=== PATIENT | female | born 1970 | race Caucasian/White ===

== ENCOUNTER 2023-07-18 12:01 | Emergency (ER) | payer BC ==
[2023-07-18 12:39] LABS: Absolute Lymphocytes (CBC) 2.3 K/uL (0.7-4.9); Hematocrit 42.9 % (36.0-45.0); Lymphocytes % 18.7 % (15.3-44.8); MCV 91.3 fL (80-100); MPV 9.4 fL (7.6-11.3); Platelets 271 thou/uL (152-406)
[2023-07-18 12:45] LABS: Specific Gravity 1.011 (1.005-1.030); Urine Bacteria None Seen /HPF (<20); Urine Bilirubin NEGATIVE (Negative); Urine Blood Negative (Negative); Urine Clarity Turbid (Clear); Urine Color Colorless (Yellow); Urine Glucose NEGATIVE (Negative); Urine Protein NEGATIVE (Negative); Urine RBC <5 /HPF (None Seen); Urine Urobilinogen Normal (Normal)
[2023-07-18] MEDS ORDERED: MORPHINE 4 MG/ML SYR ONE (12:46)
[2023-07-18] MEDS ORDERED: NA CHLORIDE 0.9% 1,000 ML ONE ×2 (12:46→13:48)
[2023-07-18] MEDS ORDERED: ONDANSETRON 4 MG/2 ML VIAL ONE (12:46)
[2023-07-18 12:56] LABS: Albumin 3.6 g/dL (3.4-5.0); Bilirubin Total 0.2 mg/dL (0.2-1.0); Potassium 3.9 mEq/L (3.5-5.1); Protein, Total 7.8 g/dL (6.4-8.2)
[2023-07-18] MEDS ORDERED: FENTANYL CITR 100 MCG/2 ML ONE (13:46)
[2023-07-18] MEDS ORDERED: NA CHLORIDE 0.9% 0 ML ONE (13:46)
--- NOTE | 2023-07-18 14:05 | RAD REPORT ---
EXAM DESCRIPTION: CT - Abdomen Pelvis W Contrast - 07/18/2023 1:20 pm CLINICAL HISTORY: ABD PAIN COMPARISON: No comparisons TECHNIQUE: Thin cut axial CT imaging of the abdomen and pelvis was performed following intravenous a dministration of 100 mL Isovue 300. Multiplanar reformats were generated and reviewed. All CT scans are performed using dose optimization technique as appropriate and may include automated exposure control or mA/KV adjustment according to patient size. FINDINGS: No suspicious findings in the lung bases. The liver shows diffuse parenchymal hypoattenuation suggesting steatosis. Spleen, and pancreas show n o suspicious findings. Gallbladder shows minimal layering hyperdense material, could represent small stones. Left adrenal ovoid 1.8 centimeter hypoenhancing nodule, not well characterized. Symmetric renal function is seen with no hydronephrosis or suspicious renal mass. No dilated bowel loops or bowel wall thickening. Nonspecific segmental fluid filling within nondilate d left hemiabdomen small-bowel loops, could relate to diarrheal state. No free air, free fluid or inf lammatory stranding. No hernia, mass or bulky lymphadenopathy. The urinary bladder is without signifi cant finding. No suspicious bony findings. IMPRESSION: No acute intra-abdominal process. Nonspecific segmental fluid filling of nondilated le ft abdominal small bowel loops, could relate to diarrheal state. Incidentally noted left adrenal 1.8 cm hypoenhancing nodule, not well characterized on this single-ph ase exam, could represent an adenoma. Possibility of metastatic disease cannot be entirely excluded. Further characterization by adrenal protocol CT, or MRI (including an out of phase imaging), may be h elpful.
--- NOTE | 2023-07-18 15:14 | RAD REPORT ---
EXAM DESCRIPTION: US - Abdomen Exam Limited - 07/18/2023 3:01 pm CLINICAL HISTORY: ABD PAIN COMPARISON: Abdomen Pelvis W Contrast dated 07/18/2023 TECHNIQUE: Sonographic grayscale and color flow images of the right upper abdominal quadrant were obtained. FINDINGS: The gallbladder demonstrates few tiny layering gallstones along the dependent wall of the gallbladder body with posterior acoustic shadowing. No pericholecystic fluid or gallbladder wall thic kening. The common bile duct is prominent measuring 8 millimeters in caliber. The liver demonstrates no findings of intrahepatic biliary dilatation. Visualized liver parenchyma an d shows diffuse hyperechogenicity suggesting steatosis. IMPRESSION: Few gallstones. No sonographic findings to suggest acute cholecystitis. Nonspecific common bile duct prominence, without evidence of choledocholithiasis. Please correlate wi th bili levels.
[2023-07-18] MEDS ORDERED: DICYCLOMINE HCL 10 MG CAP ONE (15:17)
--- NOTE | 2023-07-18 15:33 | ER ---
Nurse's Notes [facility] Name: Nuria Maya Age: 53 yrs Sex: Female : 1970 Arrival Date: 07/18/2023 Time: 12:01 Bed 20 Private MD: Diagnosis: Abdominal pain, Generalized;Other cholelithiasis without obstruction Presentation: 07/18 12:07 Chief complaint: Patient states: Upper abdominal pain along with distention since 8am nj1 this morning. Denies N/V/D as well as fever. Currently undergoing radiation for breast cancer. 12:07 Coronavirus screen: Vaccine status: Patient reports being unvaccinated. Ebola Screen: [facility] Patient denies travel to an Ebola-affected area in the 21 days before illness onset. Initial Sepsis Screen: Does the patient meet any 2 criteria? HR > 90 bpm. No. Patient's initial sepsis screen is negative. Does the patient have a suspected source of infection? No. Patient's initial sepsis screen is negative. Risk Assessment: Do you want to hurt yourself or someone else? Patient reports no desire to harm self or others. Onset of symptoms was July 18, 2023 at 08:15. 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 - Social history:: Smoking status: Patient denies any tobacco usage or history of. Screenin:07 [facility] [place] ED Fall Risk Assessment (Adult) History of falling in the last 3 months, db including since admission No falls in past 3 months (0 pts) Score/Fall Risk Level 0 - 2 = Low Risk Oriented to surroundings, Maintained a safe environment. Abuse screen: Denies threats or abuse. Denies injuries from another. Nutritional screening: No deficits noted. Tuberculosis screening: No symptoms or risk factors identified. Assessment: 12:30 Reassessment: Patient appears in no apparent distress at this time. Patient and/or db family updated on plan of care and expected duration. Pain level reassessed. Patient is alert, oriented x 3, equal unlabored respirations, skin warm/dry/pink. General: Appears in no apparent distress. comfortable, Behavior is calm, cooperative. Pain: Complains of pain in abdomen. Neuro: Level of Consciousness is awake, alert, obeys commands, Oriented to person, place, time, situation. Respiratory: Airway is patent Respiratory effort is even, unlabored, Respiratory pattern is regular, symmetrical. GI: Bowel sounds Abd is soft Abdomen is tender to palpation. 13:58 Reassessment: NOTIFIED CHARGE UNABLE TO OBTAIN IV. AND PREVIOUS LINE INFILTRATED. db ANOTHER NURSE AT BEDSIDE FOR ULTRASOUND IV PLACEMENT. 15:15 Reassessment: Patient appears in no apparent distress at this time. Patient and/or db family updated on plan of care and expected duration. Pain level reassessed. 16:00 Reassessment: Patient appears in no apparent distress at this time. Patient and/or db family updated on plan of care and expected duration. Pain level reassessed. Patient is alert, oriented x 3, equal unlabored respirations, skin warm/dry/pink. Patient states feeling better. Patient states symptoms have improved. Vital Signs: 12:07 BP 115 / 89; Pulse 96; Resp 20; Temp 97.9(O); Pulse Ox 97% on R/A; Weight 92.99 kg; nj1 Height 5 ft. 3 in. ; Pain 9/10; 13:32 BP 132 / 78; Pulse 93; Resp 16; Pulse Ox 96% on R/A; db 14:30 BP 129 / 80; Pulse 88; Resp 16; Pulse Ox 98% on R/A; db 15:30 BP 115 / 76; Pulse 87; Resp 16; Pulse Ox 97% on R/A; db 12:07 Body Mass Index 36.31 (92.99 kg, 160.02 cm) nj1 12:07 Pain Scale: Adult nj1 ED Course: 12:04 Patient arrived in ED. ts1 12:06 Verónica Funez FNP-C [facility]. kb 12:[address] MD is Attending Physician. kb 12:09 Sandi Walsh, LAYLA is Primary Nurse. db 12:16 Triage completed. nj1 12:18 Arm band placed on left wrist. nj1 12:28 Inserted saline lock: 22 gauge in left antecubital area, using aseptic technique. Blood db collected. 13:22 CT Abd/Pelvis - IV Contrast Only In Process Unspecified. EDMS 13:40 IV discontinued, intact, IV LINE NO LONGER WORKING. NOTED INFILTRATION AFTER PATIENT db RETURNED FROM CT. 13:55 Missed attempt(s): 22 gauge in left forearm. Bleeding controlled, band aid applied, db catheter tip intact. 14:10 Inserted saline lock: 20 gauge in left upper arm, using aseptic technique. ,using nj1 aseptic technique. Ultrasound guided. Catheter tip well visualized within vasculature during placement. 15:03 US Abdomen Limited In Process Unspecified. EDMS 16:20 Patient has correct armband on for positive identification. Bed in low position. Call db light in reach. Side rails up X 1. Provided Education on: discharge. 16:20 No provider procedures requiring assistance completed. db Administered Medications: 12:32 Drug: NS 0.9% IV 1000 ml Route: IV; Rate: 1 bolus; Site: left antecubital; db 16:20 Follow up: IV Status: Completed infusion; IV Intake: 1000ml db 12:32 Drug: Ondansetron IVP 4 mg Route: IVP; Site: left antecubital; db 16:20 Follow up: Response: No adverse reaction db 12:33 Drug: morphine IVP or IV 4 mg Route: IVP; Infused Over: 4 mins; Site: left antecubital; db 16:20 Follow up: Response: No adverse reaction db 14:15 Drug: fentaNYL (PF) IVP 50 mcg Route: IVP; Site: left antecubital; db 16:20 Follow up: Response: No adverse reaction db 15:10 Drug: Dicyclomine PO 20 mg Route: PO; db 16:20 Follow up: Response: No adverse reaction db Medication: 16:20 VIS not applicable for this client. db Intake: 16:20 IV: 1000ml; Total: 1000ml. db Outcome: 15:32 Discharge ordered by . kb 16:20 Discharged to home ambulatory, with friend. db 16:20 Condition: stable 16:20 Discharge instructions given to patient, Instructed on discharge instructions, follow up and referral plans. Prescriptions given X 3. 16:26 Patient left the ED. hb Signatures: Dispatcher [employer] EDMS Verónica Funez, CURING PRESS OPERATOR-C CURING PRESS OPERATOR-Ckb Sandi Silva, RN RN hb Sandi Walsh, RN RN db Kathie Shafer RN RN nj1 Yazmin Wilson PAS [facility] ts1 Corrections: (The following items were deleted from the chart) 14:05 13:40 IV discontinued, intact, IV LINE NO LONGER WORKING. NOTED INFILTRATION db db
--- NOTE | 2023-07-18 15:33 | EDPHYS ---
Physician Documentation [facility] Name: Nuria Maya Age: 53 yrs Sex: Female : 1970 Arrival Date: 07/18/2023 Time: 12:01 Bed 20 Private MD: ED Physician Girma Lane HPI: 07/18 15:13 This 53 yrs old Female presents to ER via Ambulatory with complaints of Abdominal Pain, kb Back Pain, Neck Pain, <24hrs Old. 15:13 The patient presents with abdominal pain that is diffuse. Pt reports abd pain, bloating kb and nausea that started this morning. States she came here on June 29 for same symptoms and was admitted, but they only checked her heart. States she wants her abd checked out this time. States she gets similar pain and symptoms every 2-3 weeks, but she normally doesn't feel the need to come to the ER for it. . 15:29 Onset: The symptoms/episode began/occurred this morning. The symptoms do not radiate. kb Associated signs and symptoms: Pertinent positives: nausea, Pertinent negatives: fever. The symptoms are described as constant. Modifying factors: The symptoms are alleviated by nothing, the symptoms are aggravated by nothing. Severity of pain: At its worst the pain was mild moderate in the emergency department the pain is unchanged. The patient has experienced similar episodes in the past. The patient has not recently seen a physician. 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 - Social history:: Smoking status: Patient denies any tobacco usage or history of. ROS: 15:13 Constitutional: Negative for fever, chills, and weight loss. kb 15:13 Abdomen/GI: Positive for abdominal pain, nausea. 15:13 All other systems are negative. Exam: 15:13 Constitutional: This is a well developed, well nourished patient who is awake, alert, kb and in no acute distress. Head/Face: Normocephalic, atraumatic. ENT: Moist Mucous membranes Cardiovascular: Regular rate and rhythm with a normal S1 and S2. No gallops, murmurs, or rubs. No pulse deficits. Respiratory: Respirations even and unlabored. No increased work of breathing. Talking in full sentences Skin: Warm, dry with normal turgor. Normal color. MS/ Extremity: Pulses equal, no cyanosis. Neurovascular intact. Full, normal range of motion. Neuro: Awake and alert, GCS 15, oriented to person, place, time, and situation. Moves all extremities. Normal gait. 15:13 Abdomen/GI: Inspection: abdomen appears normal, Bowel sounds: normal, Palpation: soft, in all quadrants, mild abdominal tenderness, in all quadrants. Vital Signs: 12:07 BP 115 / 89; Pulse 96; Resp 20; Temp 97.9(O); Pulse Ox 97% on R/A; Weight 92.99 kg; nj1 Height 5 ft. 3 in. ; Pain 9/10; 13:32 BP 132 / 78; Pulse 93; Resp 16; Pulse Ox 96% on R/A; db 14:30 BP 129 / 80; Pulse 88; Resp 16; Pulse Ox 98% on R/A; db 15:30 BP 115 / 76; Pulse 87; Resp 16; Pulse Ox 97% on R/A; db 12:07 Body Mass Index 36.31 (92.99 kg, 160.02 cm) nj 12:07 Pain Scale: Adult nj1 MDM: 12:06 Patient medically screened. kb 15:16 Differential diagnosis: bowel obstruction, cholecystitis, Cholelithiasis, gastritis, kb non-specific abd pain, pancreatitis. Data reviewed: vital signs, nurses notes. 15:31 Counseling: I had a detailed discussion with the patient and/or guardian regarding the kb historical points, exam findings, and any diagnostic results supporting the discharge/admit diagnosis, lab results, radiology results, the need for outpatient follow up, a family practitioner, a general surgeon, a test desk trouble locator, to return to the emergency department if symptoms worsen or persist or if there are any questions or concerns that arise at home. 07/18 12:16 Order name: CBC with Diff; Complete Time: 12:47 kb 07/18 12:16 Order name: CMP; Complete Time: 13:08 kb 07/18 12:16 Order name: Lipase; Complete Time: 13:08 kb 07/18 12:16 Order name: Urinalysis w/ reflexes; Complete Time: 12:47 kb 07/18 12:16 Order name: CT Abd/Pelvis - IV Contrast Only; Complete Time: 14:08 kb 07/18 14:35 Order name: US Abdomen Limited; Complete Time: 15:16 kb 07/18 12:16 Order name: IV Saline Lock; Complete Time: 12:30 kb 07/18 12:16 Order name: Labs collected and sent; Complete Time: 12:30 kb Administered Medications: 12:32 Drug: NS 0.9% IV 1000 ml Route: IV; Rate: 1 bolus; Site: left antecubital; db 16:20 Follow up: IV Status: Completed infusion; IV Intake: 1000ml db 12:32 Drug: Ondansetron IVP 4 mg Route: IVP; Site: left antecubital; db 16:20 Follow up: Response: No adverse reaction db 12:33 Drug: morphine IVP or IV 4 mg Route: IVP; Infused Over: 4 mins; Site: left antecubital; db 16:20 Follow up: Response: No adverse reaction db 14:15 Drug: fentaNYL (PF) IVP 50 mcg Route: IVP; Site: left antecubital; db 16:20 Follow up: Response: No adverse reaction db 15:10 Drug: Dicyclomine PO 20 mg Route: PO; db 16:20 Follow up: Response: No adverse reaction db Disposition: 18:54 Co-signature as Attending Physician, Girma Lane MD I reviewed the patient's care rn provided by the Advanced Practice Provider and agree with the diagnosis and treatment plan. Disposition Summary: 07/18/23 15:32 Discharge Ordered Location: Home kb Condition: Stable kb Diagnosis - Abdominal pain, Generalized kb - Other cholelithiasis without obstruction kb Followup: kb - With: Emergency Department - When: As needed - Reason: Worsening of condition Followup: kb - With: Private Physician - When: 2 - 3 days - Reason: Recheck today's complaints, Continuance of care, Re-evaluation by your physician Discharge Instructions: - Discharge Summary Sheet kb - Cholelithiasis, [id number] kb - Abdominal Pain, Adult, [id number] kb Forms: - Medication Reconciliation Form kb - Thank You Letter kb - Antibiotic Education kb - Prescription Opioid Use kb - Patient Portal Instructions kb - Leadership Thank You Letter Prescriptions: - Tramadol 50 mg Oral Tablet - take 1 tablet by ORAL route every 8 hours as needed; 12 tablet; Refills: 0, kb Product Selection Permitted - promethazine 25 mg Oral Tablet - take 1 tablet by ORAL route every 8 hours As needed; 20 tablet; Refills: 0, kb Product Selection Permitted - dicyclomine 20 mg Oral Tablet - take 1 tablet by ORAL route 4 times per day As needed; 20 tablet; Refills: 0, kb Product Selection Permitted Signatures: Dispatcher [employer] EDMS Verónica Funez, PICKLER HELPER-C PICKLER HELPER-Girma Archibald MD MD rn Benton, Danielle, RN RN Kathie Franco RN RN nj1 Corrections: (The following items were deleted from the chart) 15:31 15:31 Counseling: I had a detailed discussion with the patient and/or guardian regarding the historical points, exam findings, and any diagnostic results supporting the discharge/admit diagnosis, lab results, radiology results, the need for outpatient follow up, a family practitioner, to return to the emergency department if symptoms worsen or persist or if there are any questions or concerns that arise at home, kb 15:31 15:13 Pt reports abd pain, bloating and nausea that started Wednesday and has been worse kb this mrpaolo. States she came here on Wednesday and was admitted, but they only checked her heart. States she wants her abd checked out this time. States she gets similar pain and symptoms every few weeks, but she normally doesn't feel the need to come to the ER for it. . kb
[2023-07-18 17:10] VITALS: TEMP 97.9
[2023-07-18 17:11] VITALS: BP 132/78; O2SAT 96
== END 2023-07-18 16:26 | disposition home or self-care (01) ==
LOC: ER 12:01
DX: R10.84 Generalized abdominal pain (principal); K80.80 Other cholelithiasis without obstruction; Z91.09 Other allergy status, other than to drugs and biological substances
CPT/HCPCS: 96361; 85025; 81001; 36415; 83690; 80053; 74177; 76705; 96375; 96374; 99284; Q9967; J3010; J2405; J7030 ×2; J7040